=== PATIENT | male | born 1965 ===

== ENCOUNTER 2024-02-13 10:48 | Day surgery (SDC) | payer BC ==
[2024-02-13] VITALS (17 sets, daily range): BP systolic 112–151; BP diastolic 66–92; PULSE 62–72; TEMP 96–98.2
[~2024-02-13] VITALS: Ht 180.3 cm; Wt 113.0 kg
[2024-02-13] MEDS ORDERED: 1/2 NS 1,000 ML IV SCH (11:00)
[2024-02-13 12:19] LABS: HEMATOCRIT 46.7 % (42.0-52.0); HEMOGLOBIN 15.7 g/dl (13.5-18.0); MEAN CELL VOLUME 90 fl (80.0-100.0); MEAN CORPUSCULAR HEMOGLOBIN 30 pg (27-31); MEAN CORPUSCULAR HGB CONC 34 g/dl (33.0-37.0); MEAN PLATELET VOLUME 9.1 fl (7.4-10.4); PLATELET COUNT 310 K/mm3 (130-400); RED BLOOD COUNT 5.22 M/mm3 (4.20-5.60); REDCELL DISTRIBUTION WIDTH-CV 14.4 % (11.5-14.5)
[2024-02-13 12:29] LABS: PROTHROMBIN TIME 10.6 SECONDS (9.7-12.8)
[2024-02-13 12:31] LABS: PARTIAL THROMBOPLASTIN TIME 60.1 SECONDS (26.0-37.0)
[2024-02-13] MEDS ORDERED: K-DUR20 MEQ PO (12:34)
[2024-02-13] MEDS ORDERED: SYNTHROID0.05 MG/TA PO (12:35)
[2024-02-13] MEDS ORDERED: ZESTRIL40 MG PO (12:35)
[2024-02-13] MEDS ORDERED: JARDIANCE10 (12:36)
[2024-02-13] MEDS ORDERED: INDOCIN50 MG PO (12:36)
[2024-02-13] MEDS ORDERED: NORVASC 10MG10 MG PO (12:37)
[2024-02-13] MEDS ORDERED: ZYLOPRIM 300MG300 MG PO (12:37)
[2024-02-13] MEDS ORDERED: LIPITOR 40MG TA40 MG PO (12:37)
[2024-02-13] MEDS ORDERED: COLCRYS0.6 MG PO (12:38)
[2024-02-13] MEDS ORDERED: BUMEX 1MG TA1 MG/TA1 PO (12:38)
[2024-02-13 12:44] LABS: CALCIUM 9.2 mg/dL (8.4-10.2); CREATININE, serum 1.2 mg/dL (0.72-1.25); POTASSIUM 4.1 mEq/L (3.5-4.5)
[2024-02-13] MEDS ORDERED: Bisacodyl 5 MG TAB PO PRN (14:30)
[2024-02-13] MEDS ORDERED: Ticagrelor 90 MG TAB PO SCH ×2 (14:32→21:00)
[2024-02-13] MEDS ORDERED: Midazolam 2 MG/2 ML VIAL IV SCH (14:33)
[2024-02-13] MEDS ORDERED: fentaNYL 50 MCG/ML 2 ML VIAL IV SCH (14:33)
[2024-02-13] MEDS ORDERED: Iohexol 350 - 100 ML VIAL INCOR ONE (14:34)
[2024-02-13] MEDS ORDERED: dilTIAZem 25 MG/5 ML VIAL IA SCH (14:36)
[2024-02-13] MEDS ORDERED: Nitroglycerin 100 MCG/ML (Cath Lab) 10 ML VIAL IA SCH (14:36)
[2024-02-13] MEDS ORDERED: Bivalirudin 250 MG in NS 50 ML IV SCH (14:39)
[2024-02-13] MEDS ORDERED: Heparin 1,000 UNITS/ML 10 ML Multi-Dose VIAL IV SCH (14:40)
[2024-02-13] MEDS ORDERED: Heparin 1,000 UNITS/ML 10 ML Multi-Dose VIAL IA SCH (14:41)
--- NOTE | 2024-02-13 14:58 | NUR ---
Patient came from medical laboratory technical officer. Patient sleepy and denies pain at this time. Patient family at bedside. patient right radial site dry/intact no bleeding and radial band on. patient hand warm, able to move fingers, and able to touch sensation. call light within reach. bed at lowest position.
--- NOTE | 2024-02-13 14:59 | NUR ---
Bedside report completed with Shayy VIVAR. Insertion site reviewed, first set of vital reviewed, call light within reach, angiomax going at 39.6 ml/hr. No telemetry box in place Hailey VIVAR advises she can grab one from ICU. Sahyy VIVAR denies questions/concerns at this time.
[2024-02-13] MEDS ORDERED: Ondansetron 4 MG/2 ML VIAL IV PRN (15:00)
[2024-02-13] MEDS ORDERED: Magnes Hydrox (MOM) 80 MG/ML 30 ML CUP PO PRN (15:00)
--- NOTE | 2024-02-13 15:02 | NUR ---
See merge for all medication, assessment, intervention, and vital sign times.
[2024-02-13] MEDS ORDERED: Bumetanide 1 MG TAB PO SCH (17:00)
--- NOTE | 2024-02-13 17:30 | NUR ---
2ml of air were released from radial site.no bleeding.
--- NOTE | 2024-02-13 17:45 | NUR ---
1ml was removed from radial band balloon.
--- NOTE | 2024-02-13 18:10 | NUR ---
5ml was removed from radial band balloon.
--- NOTE | 2024-02-13 19:00 | NUR ---
4ml was removed from radial band balloon.minimal bleeding occurred.
[2024-02-13] MEDS ORDERED: NORCO 325 MG-7.1 TAB PO (19:17)
[2024-02-13] MEDS ORDERED: HYDROcodone/Acetaminophen 7.5-325 MG TAB PO PRN (19:30)
--- NOTE | 2024-02-13 20:00 | NUR ---
Assessment complete. A&Ox3. Denies nausea/shortness of breath. VS stable. Rating pain to back/right arm 6/10 on pain scale-states he has chronic pain and takes [place] PRN. Dr Clark notified and new orders received and initiated. 2mls air released from radial band. Scant amount of old drainage noted/no hematoma. plan of care discussed to remove band in the next hour. Patient is very nervous of "bleeding to " while he is sleeping. Instructed we would be checking regularly-verbalizes understanding. Call light in reach. Will monitor.
[2024-02-13] MEDS ORDERED: Melatonin 3 MG TAB PO PRN (21:00)
--- NOTE | 2024-02-13 21:00 | NUR ---
Radial band removed at this time and bandaid applied. No bleeing noted. No hematoma. Will monitor.
[2024-02-14 00:52] VITALS: BP_SYST 151
--- NOTE | 2024-02-14 00:54 | NUR ---
Resting eyes closed. NO s/s of pain or discomfort noted. Call light in reach. Will monitor.
[2024-02-14 02:55] VITALS: BP 132/79; PULSE 58; TEMP 98.5
[2024-02-14 04:13] VITALS: BP_SYST 132
--- NOTE | 2024-02-14 05:49 | NUR ---
Patient rested well this shift. Right radial heart cath site with CDI bandaid. Splint is still on. TELE reporting SR. VS remained stable. On RA. 20g left AC INT flushes without difficulty-no s/s of infiltration noted. Did received norco x1 for chronic pain. Currently resting in bed with eyes closed. NO s/s of pain or discomfort noted. Will monitor.
--- NOTE | 2024-02-14 07:00 | NUR ---
Pt resting on bed. Rigt raidial heart cath with CDI bandaid. splint removed by lieutenant shift supervisor nurse. Tele reporting SR. VS remain stable. On RA. 20 g left ac no complications noted. Call light within reach. Bed at lowest position. Pt denies any needs at this time.
[2024-02-14 07:34] VITALS: BP 135/86; PULSE 97; TEMP 97.8
[2024-02-14 07:55] LABS: BASO # 0.1 K/mm3 (0.0-0.2); BASO % 0.6 % (0.0-2.0); EOS # 0.4 K/mm3 (0.0-0.7); EOS % 3.6 % (0.0-4.0); GRAN # 6.8 K/mm3 (1.4-6.5); GRAN % 62.7 % (42.2-75.2); HEMATOCRIT 46.5 % (42.0-52.0); HEMOGLOBIN 15.7 g/dl (13.5-18.0); LYMPH # 2.4 K/mm3 (1.2-3.4); MEAN CELL VOLUME 89 fl (80.0-100.0); MEAN CORPUSCULAR HEMOGLOBIN 30 pg (27-31); MEAN CORPUSCULAR HGB CONC 34 g/dl (33.0-37.0); MEAN PLATELET VOLUME 9.3 fl (7.4-10.4); MONO # 1.1 K/mm3 (0.1-0.6); MONO % 10.3 % (1.7-9.3); PLATELET COUNT 307 K/mm3 (130-400); RED BLOOD COUNT 5.22 M/mm3 (4.20-5.60); REDCELL DISTRIBUTION WIDTH-CV 14.5 % (11.5-14.5)
[2024-02-14 08:38] LABS: CALCIUM 8.9 mg/dL (8.4-10.2); CREATININE, serum 1.12 mg/dL (0.72-1.25); POTASSIUM 3.7 mEq/L (3.5-4.5)
[2024-02-14] MEDS ORDERED: Empagliflozin 10 MG TAB PO SCH (09:00)
[2024-02-14] MEDS ORDERED: Lisinopril 20 MG TAB PO SCH (09:00)
[2024-02-14] MEDS ORDERED: Allopurinol 300 MG TAB PO SCH (09:00)
[2024-02-14 11:08] VITALS: BP 146/88; PULSE 70; TEMP 97.4
[2024-02-14] MEDS ORDERED: LIPITOR 80MG80 MG PO (11:20)
[2024-02-14] MEDS ORDERED: BRILINTA90 MG PO (11:20)
[2024-02-14] MEDS ORDERED: TOPROL XL 25MG25 MG PO (11:21)
[2024-02-14] MEDS ORDERED: ASPIRIN E.C. 8181 MG PO (11:21)
--- NOTE | 2024-02-14 11:59 | NUR ---
vamp cut out worker met with pt and sonTim at bedside to discuss discharge planning. Pt reports he lives alone in [place]. He sees Dr. Oneilorrow and obtains medications from [facility] with no difficulties. He reports to be independent with ADLS and uses no DME. He states his contact is also his daughter, Radha [phone]. Pt declined a DPOA-HC at this time. Pt intends to return home today. 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 Discharge plan: home
--- NOTE | 2024-02-14 13:11 | NUR ---
PATIENT GIVEN DISCHARGE INSTRUCTIONS AND EDUCAITON. PATIENT IV AND TELE REMOVED. PATIENT VERBALIZED UNDERSTANDING TO THE ABOVE AND ALSO THE POST RADIAL HEART CATH DISCHARGE INSTRUCTIONS. PATIENT TAKEN TO PATIENT ENTRANCE BY STAFF WHERE HE LEFT IN STABLE CONDITION WITH HIS SON.
--- NOTE | 2024-02-14 14:31 | NUR ---
PATIENTS DANIELLE SHEPHERD CALLED AND STATED [facility] IN [place] DOES NOT HAVE ANY B[place] FOR AT LEAST 2 DAYS. THIS RN CALLED [facility] IN [facility] ([facility]) AND WAS ABLE TO PLACE ORDER FOR SAME ORDER OF [place] ON DISCHARGE, PATIENT AWARE AND WILL FOUNDING PARTNER ORDER FORM [facility]. THIS RN CALLED [facility] AND CANCELLED BRIL[place]TA ORDER.
--- NOTE | 2024-02-17 10:52 | NUR ---
Staff attempted to see patient on 02/14/24 while still admitted. Rounding team in at that time. Staff left information but was unable to go see again due to staffing contraints. Staff sent referral to [facility] ([facility]).
== END 2024-02-14 13:13 | disposition home or self-care (01) ==
LOC: COL.CAR 10:48 → MEDICAL 15:13 → COL.CAR 02-14 13:13
PROVIDERS: Internal Medicine Cardiovascular Disease
DX: I25.10 Atherosclerotic heart disease of native coronary artery without angina pectoris (principal); I11.0 Hypertensive heart disease with heart failure; I50.33 Acute on chronic diastolic (congestive) heart failure; E78.5 Hyperlipidemia, unspecified; F17.220 Nicotine dependence, chewing tobacco, uncomplicated; Z79.899 Other long term (current) drug therapy
CPT/HCPCS: OP; A9270; C1725; C1769; C1874; C1887; C9600; J0583; J1644; J2250; J3010; Q9967